=== PATIENT | female | born 1995 | race Caucasian/White ===

== ENCOUNTER 2016-06-27 03:11 | Emergency (ER) | payer BC ==
--- NOTE | 2016-07-01 20:07 | ER ---
ADMIT: 06/27/2016 RM/LOC: ER [facility] MR#: [id number] [facility] [address] [place], [place] [id number] [address] [place] [address] Emergency Room Report SEX: F AGE: 20 : 1995 DATE: 06/27/2016 The patient is a 20-year-old female, allegedly 12 weeks , complains of 3-day history of lower abdominal pain and cramps with no bleeding, had an ultrasound few weeks ago that showed an 8-week intrauterine . The patient does suffer from ovarian cyst. Exam remarkable for nontoxic, afebrile female. Urine negative, hCG positive. Ultrasound shows 8-week 6-day intrauterine . No free-fluid or cyst. Follow up with Dr. Peng as needed. Patrice Contreras MD/ [place] JOB #: [id number] CC: Patrice Contreras MD, Attending Physician RAMON Quesada, Family Physician Guanakito Chavarria MD
== END 2016-06-27 05:25 | disposition home or self-care (01) ==
LOC: ER 03:11
DX: O99.89 Other specified diseases and conditions complicating pregnancy, childbirth and the puerperium (principal); R10.32 Left lower quadrant pain; N83.209 Unspecified ovarian cyst, unspecified side; Z3A.09 9 weeks gestation of pregnancy; Z90.89 Acquired absence of other organs; Z98.890 Other specified postprocedural states; Z88.6 Allergy status to analgesic agent